=== PATIENT | female | born 1950 | race Caucasian/White ===

== ENCOUNTER 2017-10-27 16:53 | Emergency (ER) | payer MEDICARE, MEDICAID ==
[~2017-10-27 16:53] MED LIST: ALBU8.5H4 IH; ALBU8HFA PO; CEPH500C5 PO; CLIN-80 PO; ONDA4TAB12 PO; PRED20TA PO
[2017-10-27] MEDS ORDERED: normal saline 1000ML IV soln IVB ONE ×2 (17:15→19:05)
[2017-10-27 21:25] VITALS: BP 110/70
== END 2017-10-27 21:28 | disposition home or self-care (01) ==
LOC: ER 16:54
DX: F10.129 Alcohol abuse with intoxication, unspecified (principal); K21.9 Gastro-esophageal reflux disease without esophagitis; F12.10 Cannabis abuse, uncomplicated; Z59.0 Homelessness; Z79.899 Other long term (current) drug therapy
CPT/HCPCS: 93005; 96360; 96361; 99284; J7030

== ENCOUNTER 2018-03-12 17:40 | Emergency (ER) | payer MEDICARE, MEDICAID ==
[~2018-03-12] VITALS: Ht 160 cm; Wt 59.0 kg
[~2018-03-12 17:40] MED LIST changes: -CEPH500C5 PO; -CLIN-80 PO; +CLIN300C85 PO
[2018-03-12 19:44] VITALS: BP 111/77
== END 2018-03-12 19:45 | disposition home or self-care (01) ==
LOC: ER 17:41
DX: S00.83XA Contusion of other part of head, initial encounter (principal); S00.81XA Abrasion of other part of head, initial encounter; K21.9 Gastro-esophageal reflux disease without esophagitis; F17.200 Nicotine dependence, unspecified, uncomplicated; F12.90 Cannabis use, unspecified, uncomplicated; F10.129 Alcohol abuse with intoxication, unspecified; Z79.2 Long term (current) use of antibiotics; Z79.899 Other long term (current) drug therapy; Z59.0 Homelessness; W18.30XA Fall on same level, unspecified, initial encounter; Y93.89 Activity, other specified; Y92.89 Other specified places as the place of occurrence of the external cause; Y99.8 Other external cause status
CPT/HCPCS: 70450; 72125; 99284

== ENCOUNTER 2022-07-24 05:23 | Emergency (ER) | payer MEDICARE, MEDICAID ==
[~2022-07-24] VITALS: Ht 160 cm; Wt 60.0 kg
[~2022-07-24 05:23] MED LIST changes: +CLIN-97 PO; -CLIN300C85 PO
[2022-07-24 05:27] VITALS: BP 162/83
[2022-07-24] MEDS ORDERED: doxycycline inj 100 MG in normal saline 100ml IV soln 100 ML IV ONE (06:20)
[2022-07-24 07:07] LABS: BASOPHILS # (AUTO) 0.1 X10'3 (0-0.2); BASOPHILS % (AUTO) 0.8 % (0-1); EOSINOPHILS # (AUTO) 0.2 X10'3 (0-0.9); EOSINOPHILS % (AUTO) 2.2 % (0-6); HEMATOCRIT 48.7 % (35.0-45.0); HEMOGLOBIN 16.2 g/dl (12.0-16.0); LYMPHOCYTES # (AUTO) 1.8 X10'3 (1.1-4.8); LYMPHOCYTES % (AUTO) 23.3 % (21-51); MEAN CORPUSCULAR HEMOGLOBIN 29.3 PG (27.0-31.0); MEAN CORPUSCULAR HGB CONC 33.3 g/dL (33.0-36.5); MEAN CORPUSCULAR VOLUME 88.2 FL (78-98); MEAN PLATELET VOLUME 8.4 FL (7.4-10.4); MONOCYTES # (AUTO) 0.4 X10'3 (0-0.9); MONOCYTES % (AUTO) 5.7 % (2-12); NEUTROPHILS # (AUTO) 5.4 X10'3 (1.8-7.7); PLATELET COUNT 149 X10'3 (140-440); RED BLOOD COUNT 5.52 X10'6 (4.20-5.60); RED CELL DISTRIBUTION WIDTH 14.2 % (11.5-14.5); WHITE BLOOD COUNT 7.9 X10'3 (4.5-11.0)
[2022-07-24 07:14] LABS: ALANINE AMINOTRANSFERASE 12 U/L (12-78); ALBUMIN 3.7 G/DL (3.4-5.0); ALBUMIN/GLOBULIN RATIO 0.9 (1.1-1.5); ALKALINE PHOSPHATASE 76 IU/L (46-116); ANION GAP 11 (8-16); ASPARTATE AMINO TRANSFERASE 11 U/L (10-37); BILIRUBIN,TOTAL 0.5 MG/DL (0.1-1.0); BLOOD UREA NITROGEN 12 MG/DL (7-18); BUN/CREATININE RATIO 12.4 (6.6-38.0); CALCIUM 8.8 MG/DL (8.5-10.1); CHLORIDE 101 MMOL/L (99-107); CREATININE 0.97 MG/DL (0.40-0.90); GLUCOSE 128 MG/DL (70-104); POTASSIUM 3.5 MMOL/L (3.5-5.1); SODIUM 140 MMOL/L (135-145); TOTAL CARBON DIOXIDE 28.3 MMOL/L (24-32); TOTAL PROTEIN 7.9 G/DL (6.4-8.2); eGFR 56 ML/MIN
[2022-07-24] MEDS ORDERED: FLUT1DIS4 INH (07:17)
[2022-07-24] MEDS ORDERED: ALBU6.7H14 INH (07:17)
[2022-07-24] MEDS ORDERED: DOXY100T67 PO (07:17)
[2022-07-24] MEDS ORDERED: PRED20TA PO (07:19)
[2022-07-24] MEDS: methylPREDNISolone sod succ 125mg/2ml vial IV ONE (07:22)
[2022-07-24] MEDS: DOXYCYCLINE 100MG CAPSULE PO STA (07:31)
== END 2022-07-24 07:38 | disposition home or self-care (01) ==
LOC: ER 05:23
DX: J44.1 Chronic obstructive pulmonary disease with (acute) exacerbation (principal); Z20.822 Contact with and (suspected) exposure to COVID-19; K21.9 Gastro-esophageal reflux disease without esophagitis; F17.200 Nicotine dependence, unspecified, uncomplicated; F12.90 Cannabis use, unspecified, uncomplicated; Z59.00 Homelessness unspecified
CPT/HCPCS: 36415; 71045; 80053; 83880; 84145; 85025; 87502; 87503; 87635; 93005; 96374; 99285; C9803; J2930

== ENCOUNTER 2022-10-01 15:14 | Emergency (ER) | payer MEDICARE, MEDICAID ==
[~2022-10-01] VITALS: Ht 160 cm; Wt 58.2 kg
[~2022-10-01 15:14] MED LIST changes: +ALBU6.7H14 INH; +FLUT1DIS4 INH
[2022-10-01 15:56] LABS: BASOPHILS # (AUTO) 0.1 X10'3 (0-0.2); BASOPHILS % (AUTO) 0.7 % (0-1); EOSINOPHILS # (AUTO) 0.1 X10'3 (0-0.9); HEMATOCRIT 47.6 % (35.0-45.0); HEMOGLOBIN 15.8 g/dl (12.0-16.0); LYMPHOCYTES # (AUTO) 2.5 X10'3 (1.1-4.8); LYMPHOCYTES % (AUTO) 27.5 % (21-51); MEAN CORPUSCULAR HEMOGLOBIN 29.2 PG (27.0-31.0); MEAN CORPUSCULAR HGB CONC 33.3 g/dL (33.0-36.5); MEAN CORPUSCULAR VOLUME 87.7 FL (78-98); MEAN PLATELET VOLUME 8.1 FL (7.4-10.4); MONOCYTES # (AUTO) 0.8 X10'3 (0-0.9); MONOCYTES % (AUTO) 8.5 % (2-12); NEUTROPHILS # (AUTO) 5.6 X10'3 (1.8-7.7); NEUTROPHILS % (AUTO) 62.3 % (42-75); PLATELET COUNT 161 X10'3 (140-440); RED BLOOD COUNT 5.43 X10'6 (4.20-5.60); RED CELL DISTRIBUTION WIDTH 14.3 % (11.5-14.5)
[2022-10-01 16:04] LABS: ALANINE AMINOTRANSFERASE 8 U/L (12-78); ALBUMIN 3.5 G/DL (3.4-5.0); ALBUMIN/GLOBULIN RATIO 0.9 (1.1-1.5); ALKALINE PHOSPHATASE 80 IU/L (46-116); ANION GAP 9 (8-16); ASPARTATE AMINO TRANSFERASE 15 U/L (10-37); BILIRUBIN,TOTAL 0.4 MG/DL (0.1-1.0); BLOOD UREA NITROGEN 16 MG/DL (7-18); CALCIUM 8.9 MG/DL (8.5-10.1); CHLORIDE 103 MMOL/L (99-107); CREATININE 1.14 MG/DL (0.40-0.90); GLUCOSE 127 MG/DL (70-104); POTASSIUM 3.5 MMOL/L (3.5-5.1); SODIUM 138 MMOL/L (135-145); TOTAL CARBON DIOXIDE 25.8 MMOL/L (24-32); TOTAL PROTEIN 7.3 G/DL (6.4-8.2); eGFR 47 ML/MIN
[2022-10-01 17:08] VITALS: BP 111/60
--- NOTE | 2022-10-01 17:45 | NUR ---
RN PAGED RT TO GIVE RT [place].
[2022-10-01] MEDS: ipratropium/albuterol 3ml nebule NEB ONE (17:56)
--- NOTE | 2022-10-01 18:15 | NUR ---
PT REQUESTING A [facility] FOR TRANSPORT TO HER HOME.
--- NOTE | 2022-10-01 18:18 | NUR ---
RN CONFIRMED WITH PT ADDRESS ON FILE IS CORRECT AND [facility] CALLED FOR.
== END 2022-10-01 18:35 | disposition home or self-care (01) ==
LOC: ER 15:14
DX: J44.1 Chronic obstructive pulmonary disease with (acute) exacerbation (principal); J45.998 Other asthma; K21.9 Gastro-esophageal reflux disease without esophagitis; F41.9 Anxiety disorder, unspecified; F12.10 Cannabis abuse, uncomplicated
CPT/HCPCS: 36415; 71045; 80053; 83880; 84484; 85025; 93005; 94640; 94760; 99285

== ENCOUNTER 2024-04-17 09:29 | Inpatient (IN) | payer MEDICARE, MEDICAID ==
[~2024-04-17] VITALS: Ht 160 cm; Wt 51.5 kg
[~2024-04-17 09:29] MED LIST changes: +ONDA-243 PO; -ONDA4TAB12 PO
[2024-04-17 10:12] LABS: BASOPHILS % (AUTO) 0.1 % (0-1); EOSINOPHILS % (AUTO) 0 % (0-6); HEMATOCRIT 36.7 % (35.0-45.0); HEMOGLOBIN 12.2 g/dl (12.0-16.0); LYMPHOCYTES # (AUTO) 0.5 X10'3 (1.1-4.8); LYMPHOCYTES % (AUTO) 3.7 % (21-51); MEAN CORPUSCULAR HEMOGLOBIN 30.2 PG (27.0-31.0); MEAN CORPUSCULAR HGB CONC 33.3 g/dL (33.0-36.5); MEAN CORPUSCULAR VOLUME 90.6 FL (78-98); MEAN PLATELET VOLUME 8.8 FL (7.4-10.4); MONOCYTES # (AUTO) 0.5 X10'3 (0-0.9); MONOCYTES % (AUTO) 3.6 % (2-12); NEUTROPHILS # (AUTO) 13.6 X10'3 (1.8-7.7); NEUTROPHILS % (AUTO) 92.6 % (42-75); PLATELET COUNT 155 X10'3 (140-440); RED BLOOD COUNT 4.05 X10'6 (4.20-5.60); RED CELL DISTRIBUTION WIDTH 14.5 % (11.5-14.5); WHITE BLOOD COUNT 14.7 X10'3 (4.5-11.0)
[2024-04-17] MEDS ORDERED: NO HOME MEDS (10:13)
[2024-04-17] MEDS: HYDROmorphone inj. 0.5 MG/0.5 ML DISP.SYRIN IV ONE (10:23)
[2024-04-17] MEDS: normal saline 1000ml 1,000 ML IV ONE (10:24)
[2024-04-17] MEDS: LidoCAINE 2% Topical Jelly 11mL syringe (UROJET) TOP ONE (10:24)
[2024-04-17 10:35] LABS: ALANINE AMINOTRANSFERASE 16 U/L (12-78); ALBUMIN 3.3 G/DL (3.4-5.0); ALBUMIN/GLOBULIN RATIO 0.9 (1.1-1.5); ALKALINE PHOSPHATASE 60 IU/L (46-116); ANION GAP 13 (8-16); ASPARTATE AMINO TRANSFERASE 32 U/L (10-37); BILIRUBIN,TOTAL 1.4 MG/DL (0.1-1.0); BLOOD UREA NITROGEN 18 MG/DL (7-18); BUN/CREATININE RATIO 12.1 (10.0-20.0); CALCIUM 8.3 MG/DL (8.5-10.1); CHLORIDE 96 MMOL/L (99-107); CREATININE 1.49 MG/DL (0.40-0.90); GLUCOSE 154 MG/DL (70-104); SODIUM 136 MMOL/L (135-145); TOTAL CARBON DIOXIDE 26.7 MMOL/L (24-32); eCRCL 27 ML/MIN; eGFR 34 ML/MIN
[2024-04-17 11:20] LABS: BILIRUBIN,URINE NEGATIVE (Neg); CLARITY,URINE SLIGHTLY CLOUDY (Clear); COLOR,URINE YELLOW (Yellow); GLUCOSE, URINE NEGATIVE (Neg); KETONES,URINE NEGATIVE (Neg); LEUKOCYTE ESTERASE ,URINE SMALL (Neg); NITRITES, URINE NEGATIVE (Neg); OCCULT BLOOD,URINE SMALL (Neg); PROTEIN,URINE TRACE mg/dl (Neg); UROBILINOGEN,URINE 0.2 E.U/dL (0.2-1.0)
[2024-04-17] MEDS ORDERED: magnesium Cl slow-release 64mg tablet PO PRN ×2 (11:20→12:55)
[2024-04-17] MEDS ORDERED: mag hydrox/Alum hydrox/simeth 30ml oral suspension PO PRN ×2 (11:20→12:55)
[2024-04-17] MEDS ORDERED: acetaminophen 325mg tablet PO PRN ×2 (11:20→12:55)
[2024-04-17] MEDS ORDERED: HYDROmorphone/PF 0.2 MG/ML SYRINGE IV PRN (11:20)
[2024-04-17] MEDS ORDERED: ondansetron/PF 4mg/2ml inj IV PRN ×2 (11:20→12:55)
[2024-04-17] MEDS ORDERED: magnesium hydroxide 30ml (MOM) UD suspension PO PRN ×2 (11:20→12:55)
[2024-04-17] MEDS ORDERED: potassium Cl 20 mEq SR tablet PO PRN ×4 (11:20→12:55)
[2024-04-17] MEDS ORDERED: magnesium sulf-water 2g/50mL 50 ML IV PRN ×2 (11:20→12:55)
[2024-04-17 11:23] LABS: UA COLLECTION TYPE FOLEY CATH
[2024-04-17 11:23] LABS: CREATINE KINASE 594 U/L (26-192)
[2024-04-17 11:28] LABS: BACTERIA,URINE 4+ /HPF (Neg)
[2024-04-17 11:29] LABS: FINE GRANULAR CAST 0-3 /LPF (NEGATIVE); MUCUS STRANDS NONE SEEN /LPF (Neg); SQUAMOUS EPITHELIAL CELL,UR FEW /LPF (FEW)
[2024-04-17 11:31] LABS: URINE AMPHETAMINE SCREEN NEGATIVE (Neg); URINE BARBITUATE SCREEN NEGATIVE (Neg); URINE BENZODIAZEPINES SCREEN NEGATIVE (Neg); URINE CANNABINOID SCREEN POSITIVE (Neg); URINE COCAINE SCREEN NEGATIVE (Neg); URINE METHADONE SCREEN NEGATIVE (Neg); URINE OPIATE SCREEN NEGATIVE (Neg); URINE PHENCYCLIDINE SCREEN NEGATIVE (Neg)
[2024-04-17] MEDS: PERFLUTREN PROTEIN-A MICROSPHR (Optison) 0.22 MG/ML 3ML VIAL IV ONE ×2 (11:58→13:01)
[2024-04-17] MEDS: metoprolol succinate 25mg (24-HOUR) SR. Tablet PO SCH (12:05)
[2024-04-17] MEDS: normal saline 1000ml 1,000 ML IV SCH ×2 (12:33→12:55)
[2024-04-17 13:38] LABS: APTT 26 SECONDS (22-32); INR 1.1 INR; PROTHROMBIN TIME 11.1 SECONDS (9.0-12.0)
[2024-04-17 13:41] LABS: HEMOGLOBIN A1C 4.9 % (4.5-6.2)
[2024-04-17] MEDS: nicotine 14mg patch - 24hr TD SCH (16:21)
[2024-04-17] MEDS: HYDROmorphone inj. 0.5 MG/0.5 ML DISP.SYRIN IV PRN (16:21)
[2024-04-17 19:15] VITALS: BP 136/78; PULSE 88; RESP 21; TEMP 97.2; O2SAT 97
[2024-04-17 19:30] VITALS: RESP 21; O2SAT 97
[2024-04-17] MEDS: docusate sod 100mg capsule PO SCH ×2 (19:34→19:39)
[2024-04-17 22:00] VITALS: BP 133/73; PULSE 90; RESP 16; TEMP 98.6; O2SAT 98
[2024-04-18] VITALS (8 sets, daily range): BP systolic 128–137; BP diastolic 69–77; PULSE 71–86; RESP 15–18; TEMP 96.4–99.8; O2SAT 94–98
[2024-04-18] MEDS: HYDROcodone/acetaminophen 5mg/325mg tablet PO PRN (02:26)
[2024-04-18] MEDS: morphine 2 MG/ML inj. syringe IV PRN (15:29)
[2024-04-18] MEDS: pantoprazole 40 MG vial IV SCH (15:31)
[2024-04-18] MEDS ORDERED: potassium Cl 40MEQ/1/2NS 520ml 520 ML IV PRN (16:45)
[2024-04-18] MEDS ORDERED: magnesium hydroxide 30ml (MOM) UD suspension PO PRN (16:45)
[2024-04-18] MEDS ORDERED: potassium Cl 20 mEq SR tablet PO PRN ×2 (16:45)
[2024-04-18] MEDS ORDERED: magnesium Cl slow-release 64mg tablet PO PRN (16:45)
[2024-04-18] MEDS ORDERED: magnesium sulf-water 2g/50mL 50 ML IV PRN (16:45)
[2024-04-18] MEDS ORDERED: docusate sod 100mg capsule PO PRN (16:45)
[2024-04-18] MEDS ORDERED: acetaminophen 325mg tablet PO PRN (16:45)
[2024-04-18] MEDS ORDERED: magnesium sulf-water 4G/100mL 100 ML IV PRN (16:45)
[2024-04-18 17:35] LABS: ALANINE AMINOTRANSFERASE 13 U/L (12-78); ALBUMIN 2.3 G/DL (3.4-5.0); ALBUMIN/GLOBULIN RATIO 0.8 (1.1-1.5); ALKALINE PHOSPHATASE 43 IU/L (46-116); ANION GAP 6 (8-16); ASPARTATE AMINO TRANSFERASE 25 U/L (10-37); BILIRUBIN,TOTAL 0.7 MG/DL (0.1-1.0); BLOOD UREA NITROGEN 18 MG/DL (7-18); BUN/CREATININE RATIO 18.8 (10.0-20.0); CALCIUM 7.5 MG/DL (8.5-10.1); CHLORIDE 101 MMOL/L (99-107); CREATININE 0.96 MG/DL (0.40-0.90); GLUCOSE 103 MG/DL (70-104); SODIUM 132 MMOL/L (135-145); TOTAL PROTEIN 5.3 G/DL (6.4-8.2); eCRCL 41 ML/MIN; eGFR 57 ML/MIN
[2024-04-18] MEDS: normal saline 1000ml 1,000 ML IV SCH (18:03)
[2024-04-18] MEDS: K and/or MAG REPLACEMENT MC SCH (20:00)
[2024-04-18] MEDS: ipratropium/albuterol 3ml nebule NEB PRN (20:40)
[2024-04-18] MEDS: CefTRIAXone/D5W-Rocephin 1gm 50 ML IV SCH (21:47)
[2024-04-19] VITALS (26 sets, daily range): BP systolic 118–146; BP diastolic 60–81; PULSE 68–92; RESP 10–21; TEMP 97–98.4; O2SAT 92–100
[2024-04-19] MEDS: morphine 2 MG/ML inj. syringe IV PRN (03:08)
[2024-04-19 09:03] LABS: BASOPHILS % (AUTO) 0.4 % (0-1); EOSINOPHILS % (AUTO) 0.1 % (0-6); HEMATOCRIT 25.8 % (35.0-45.0); HEMOGLOBIN 8.5 g/dl (12.0-16.0); LYMPHOCYTES % (AUTO) 10.5 % (21-51); MEAN CORPUSCULAR HEMOGLOBIN 29.7 PG (27.0-31.0); MEAN CORPUSCULAR HGB CONC 32.9 g/dL (33.0-36.5); MEAN CORPUSCULAR VOLUME 90.2 FL (78-98); MEAN PLATELET VOLUME 8.2 FL (7.4-10.4); MONOCYTES # (AUTO) 0.5 X10'3 (0-0.9); MONOCYTES % (AUTO) 5.1 % (2-12); NEUTROPHILS # (AUTO) 7.8 X10'3 (1.8-7.7); NEUTROPHILS % (AUTO) 83.9 % (42-75); PLATELET COUNT 100 X10'3 (140-440); RED BLOOD COUNT 2.86 X10'6 (4.20-5.60); RED CELL DISTRIBUTION WIDTH 14.4 % (11.5-14.5); WHITE BLOOD COUNT 9.3 X10'3 (4.5-11.0)
[2024-04-19 09:19] LABS: ANION GAP 8 (8-16); CHLORIDE 103 MMOL/L (99-107); POTASSIUM 3.5 MMOL/L (3.5-5.1); SODIUM 134 MMOL/L (135-145); TOTAL CARBON DIOXIDE 23.3 MMOL/L (24-32)
[2024-04-19] MEDS ORDERED: morphine 2 MG/ML inj. syringe IV PRN (12:10)
[2024-04-19] MEDS ORDERED: meperidine/PF 25mg/ml syringe IV PRN (12:10)
[2024-04-19] MEDS ORDERED: ondansetron/PF 4mg/2ml inj IV PRN (12:10)
[2024-04-19] MEDS ORDERED: proCHLORperazine 10 MG/2 ml inj IV PRN (12:10)
[2024-04-19] MEDS ORDERED: ringers solution, lacted 1,000 ML IV SCH (12:10)
[2024-04-19] MEDS ORDERED: sevoflurane 250ml liquid IH ONE (12:28)
[2024-04-19] MEDS ORDERED: midazolam 1 mg/ML 2ml injection ONE (12:43)
[2024-04-19] MEDS ORDERED: fentaNYL/PF 50MCG/1 ML 2ML syringe ONE (12:53)
[2024-04-19] MEDS ORDERED: 0.9 % SODIUM CHLORIDE 10 ML VIAL ONE ×2 (13:00→13:53)
[2024-04-19] MEDS ORDERED: ondansetron/PF 4mg/2ml inj ONE (13:00)
[2024-04-19] MEDS ORDERED: propofol inj 20 ML IV ONE (13:00)
[2024-04-19] MEDS ORDERED: ROPIVAcaine 0.5% (5mg/ml) 30ml vial ONE ×2 (13:00→13:01)
[2024-04-19] MEDS ORDERED: ceFAZolin 1000mg inj ONE (13:00)
[2024-04-19] MEDS ORDERED: dexamethasone sod phosphate 4mg/ml inj. ONE (13:00)
[2024-04-19] MEDS ORDERED: LIDOcaine 2% (20mg/ml) 5ml vial ONE (13:00)
[2024-04-19] MEDS ORDERED: ePHEDrine 50MG/ML INJ. ONE (13:26)
[2024-04-19] MEDS: vancomycin 1,000mg inj IVT ONE (13:30)
[2024-04-19] MEDS: meperidine/PF 25mg/ml syringe IV PRN (14:34)
[2024-04-19 18:57] LABS: ALANINE AMINOTRANSFERASE 15 U/L (12-78); ALBUMIN 2.2 G/DL (3.4-5.0); ALBUMIN/GLOBULIN RATIO 0.7 (1.1-1.5); ALKALINE PHOSPHATASE 45 IU/L (46-116); ANION GAP 7 (8-16); ASPARTATE AMINO TRANSFERASE 23 U/L (10-37); BILIRUBIN,TOTAL 0.5 MG/DL (0.1-1.0); BLOOD UREA NITROGEN 13 MG/DL (7-18); BUN/CREATININE RATIO 15.9 (10.0-20.0); CALCIUM 7.4 MG/DL (8.5-10.1); CHLORIDE 100 MMOL/L (99-107); CREATININE 0.82 MG/DL (0.40-0.90); GLUCOSE 178 MG/DL (70-104); SODIUM 132 MMOL/L (135-145); TOTAL CARBON DIOXIDE 25.1 MMOL/L (24-32); TOTAL PROTEIN 5.5 G/DL (6.4-8.2); eCRCL 48 ML/MIN; eGFR 68 ML/MIN
[2024-04-20 06:00] VITALS: BP 132/70; PULSE 59; RESP 16; TEMP 97.3; O2SAT 100
[2024-04-20 07:45] VITALS: RESP 16; O2SAT 99
[2024-04-20] MEDS: ceFAZolin/D5W- 1GM premix 50 ML IV SCH (07:50)
[2024-04-20] MEDS: enoxaparin 40mg/0.4ml syringe SUBCUT SCH (08:00)
[2024-04-20 09:04] LABS: BASOPHILS % (AUTO) 0.1 % (0-1); EOSINOPHILS % (AUTO) 0.1 % (0-6); HEMATOCRIT 23.9 % (35.0-45.0); HEMOGLOBIN 7.8 g/dl (12.0-16.0); LYMPHOCYTES # (AUTO) 1.3 X10'3 (1.1-4.8); LYMPHOCYTES % (AUTO) 10.3 % (21-51); MEAN CORPUSCULAR HEMOGLOBIN 29.8 PG (27.0-31.0); MEAN CORPUSCULAR HGB CONC 32.8 g/dL (33.0-36.5); MEAN CORPUSCULAR VOLUME 91.1 FL (78-98); MEAN PLATELET VOLUME 7.7 FL (7.4-10.4); MONOCYTES # (AUTO) 0.5 X10'3 (0-0.9); NEUTROPHILS # (AUTO) 10.9 X10'3 (1.8-7.7); NEUTROPHILS % (AUTO) 85.5 % (42-75); PLATELET COUNT 106 X10'3 (140-440); RED BLOOD COUNT 2.62 X10'6 (4.20-5.60); RED CELL DISTRIBUTION WIDTH 14.4 % (11.5-14.5); WHITE BLOOD COUNT 12.7 X10'3 (4.5-11.0)
[2024-04-20 10:00] VITALS: BP 103/59; PULSE 84; RESP 12; TEMP 97.6; O2SAT 99
[2024-04-20] MEDS: ondansetron/PF 4mg/2ml inj IV PRN (14:26)
[2024-04-20] MEDS: bisacodyl 10mg suppository rectal RC STA (15:13)
[2024-04-20] MEDS: BUPIVAcaine 0.5% inj/PF 30 ML ONE (15:32)
[2024-04-20] MEDS: vancomycin 1,000mg inj ONE (15:32)
[2024-04-20] MEDS: BUPIVAcaine 0.25% w/Epi /PF 30ml vial ONE (15:32)
[2024-04-20] MEDS: cloNIDine hcl/PF 100mcg/ml inj ONE (15:33)
[2024-04-20] MEDS: tranexamic acid 100mg/ml inj. ONE (15:33)
[2024-04-20 17:20] LABS: ALANINE AMINOTRANSFERASE 13 U/L (12-78); ALBUMIN 2.1 G/DL (3.4-5.0); ALBUMIN/GLOBULIN RATIO 0.7 (1.1-1.5); ALKALINE PHOSPHATASE 54 IU/L (46-116); ANION GAP 5 (8-16); ASPARTATE AMINO TRANSFERASE 19 U/L (10-37); BILIRUBIN,TOTAL 0.4 MG/DL (0.1-1.0); BLOOD UREA NITROGEN 16 MG/DL (7-18); BUN/CREATININE RATIO 15.1 (10.0-20.0); CHLORIDE 100 MMOL/L (99-107); CREATININE 1.06 MG/DL (0.40-0.90); GLUCOSE 119 MG/DL (70-104); POTASSIUM 3.5 MMOL/L (3.5-5.1); SODIUM 132 MMOL/L (135-145); TOTAL PROTEIN 5.2 G/DL (6.4-8.2); eCRCL 37 ML/MIN; eGFR 51 ML/MIN
[2024-04-20 18:00] VITALS: BP 126/66; PULSE 68; RESP 18; TEMP 98.1; O2SAT 98
[2024-04-20] MEDS: HYDROcodone/acetaminophen 10/325mg tab PO PRN (19:35)
[2024-04-20 22:00] VITALS: BP 119/66; PULSE 71; RESP 19; TEMP 98.8; O2SAT 98
[2024-04-20 23:49] VITALS: PULSE 69; RESP 14; O2SAT 98
[2024-04-21 06:00] VITALS: BP 118/69; PULSE 71; RESP 14; TEMP 96; O2SAT 96
[2024-04-21 06:12] LABS: BASOPHILS % (AUTO) 0.4 % (0-1); EOSINOPHILS # (AUTO) 0.1 X10'3 (0-0.9); EOSINOPHILS % (AUTO) 0.7 % (0-6); HEMATOCRIT 23.5 % (35.0-45.0); HEMOGLOBIN 7.9 g/dl (12.0-16.0); LYMPHOCYTES # (AUTO) 1.2 X10'3 (1.1-4.8); LYMPHOCYTES % (AUTO) 13.1 % (21-51); MEAN CORPUSCULAR HEMOGLOBIN 30.4 PG (27.0-31.0); MEAN CORPUSCULAR HGB CONC 33.4 g/dL (33.0-36.5); MEAN PLATELET VOLUME 7.5 FL (7.4-10.4); MONOCYTES # (AUTO) 0.6 X10'3 (0-0.9); MONOCYTES % (AUTO) 6.1 % (2-12); NEUTROPHILS # (AUTO) 7.3 X10'3 (1.8-7.7); NEUTROPHILS % (AUTO) 79.7 % (42-75); PLATELET COUNT 111 X10'3 (140-440); RED BLOOD COUNT 2.59 X10'6 (4.20-5.60); RED CELL DISTRIBUTION WIDTH 14.4 % (11.5-14.5); WHITE BLOOD COUNT 9.2 X10'3 (4.5-11.0)
[2024-04-21 08:30] VITALS: RESP 18; O2SAT 96
[2024-04-21 10:00] VITALS: BP 115/61; PULSE 83; RESP 19; TEMP 97.2; O2SAT 99
[2024-04-21 13:03] VITALS: PULSE 78; RESP 20; O2SAT 98
[2024-04-21 14:37] VITALS: RESP 18; O2SAT 100
== END 2024-04-21 15:40 | DRG 480 ==
LOC: ER 09:29 → ED HOLD 12:57 → ORTHO 4S 19:20
PROVIDERS: ADMIT Family Medicine; ATTEND Family Medicine
PROC: 0QS606Z Reposition Right Upper Femur with Intramedullary Internal Fixation Device, Open Approach (ICD-10-PCS; principal; 2024-04-19 12:28)
DX: S72.141A Displaced intertrochanteric fracture of right femur, initial encounter for closed fracture (principal); E43 Unspecified severe protein-calorie malnutrition; N17.0 Acute kidney failure with tubular necrosis; Z59.00 Homelessness unspecified; N39.0 Urinary tract infection, site not specified; B96.20 Unspecified Escherichia coli [E. coli] as the cause of diseases classified elsewhere; F32.A Depression, unspecified; J44.9 Chronic obstructive pulmonary disease, unspecified; W18.39XA Other fall on same level, initial encounter; F41.9 Anxiety disorder, unspecified; K21.9 Gastro-esophageal reflux disease without esophagitis; I27.20 Pulmonary hypertension, unspecified; D72.829 Elevated white blood cell count, unspecified; Z87.891 Personal history of nicotine dependence; Z79.899 Other long term (current) drug therapy; Z87.11 Personal history of peptic ulcer disease; Y93.89 Activity, other specified; Y92.89 Other specified places as the place of occurrence of the external cause; Y99.8 Other external cause status; Z68.20 Body mass index [BMI] 20.0-20.9, adult
CPT/HCPCS: 36415; 71045; 72192; 73502; 76000; 80051; 80053; 80305; 81001; 82550; 83036; 83605; 84484; 85025; 85610; 85730; 86885; 86900; 86901; 87040; 87077; 87081; 87088; 87186; 93005; 93306; 94640; 94760; 96374; 97161; 97530; 99285; A4215; A4314; A4615; A4618; A6449; A7000; C1713; G0378; J0690; J0696; J0735; J1100; J1171; J2175; J2250; J2270; J2405; J2470; J2704; J2795; J3010; J3370; J3490; J7030; S0020